=== PATIENT | female | born 1970 | race Caucasian/White ===

== ENCOUNTER 2016-11-23 14:08 | Observation (INO) | payer BC, OTHER ==
[2016-11-23] MEDS ORDERED: NS 1,000 ML IV ONE (14:45)
[2016-11-23] MEDS ORDERED: HYDROmorphONE/DILAUDID 1 MG/ML SYR IVP ONE ×2 (14:45→16:07)
[2016-11-23] MEDS ORDERED: ONDANSETRON 4 MG/2 ML VIAL IVP ONE ×2 (14:45→17:32)
--- NOTE | 2016-11-23 14:50 | EDPHY ---
H & P Stated Complaint: Mid abd pain;n/v since this morning Time Seen by Provider: 11/23/16 14:39 HPI/ROS: CHIEF COMPLAINT: Abdominal pain HISTORY OF PRESENT ILLNESS: Patient is a 46-year-old female who comes to the emergency department complaining of right lower quadrant abdominal pain. Her symptoms began last night but have gradually increased throughout the evening and this morning. She has vomited the 3 times. No diarrhea. She has not had any fevers. She denies risk of . She denies vaginal bleeding or discharge. She does not have any surgical history. REVIEW OF SYSTEMS: Constitutional: denies: chills, fever, recent illness, recent injury EENTM: denies: blurred vision, double vision, nose congestion Respiratory: denies: cough, shortness of breath Cardiac: denies: chest pain, irregular heart rate, lightheadedness, palpitations Gastrointestinal/Abdominal: See HPI Genitourinary: denies: dysuria, frequency, hematuria, pain Musculoskeletal: denies: joint pain, muscle pain Skin: denies: lesions, rash, jaundice, bruising Neurological: denies: headache, numbness, paresthesia, tingling, dizziness, weakness Hematologic/Lymphatic: denies: blood clots, easy bleeding, easy bruising Immunologic/allergic: denies: HIV/AIDS, transplant EXAM: GENERAL: Well-appearing, well-nourished and in no acute distress. HEAD: Atraumatic, normocephalic. EYES: Pupils equal round and reactive to light, extraocular movements intact, sclera anicteric, conjunctiva are normal. ENT: TMs normal, nares patent, oropharynx clear without exudates. Moist mucous membranes. NECK: Normal range of motion, supple without lymphadenopathy or JVD. LUNGS: Breath sounds clear to auscultation bilaterally and equal. No wheezes rales or rhonchi. HEART: Regular rate and rhythm without murmurs, rubs or gallops. ABDOMEN: Soft, nontender, normoactive bowel sounds. No guarding, no rebound. No masses appreciated. BACK: No CVA tenderness, no spinal tenderness, step-offs or deformities EXTREMITIES: Normal range of motion, no pitting or edema. No clubbing or cyanosis. NEUROLOGICAL: Cranial nerves II through XII grossly intact. Normal speech, normal gait. 5/5 strength, normal movement in all extremities, normal sensation PSYCH: Normal mood, normal affect. SKIN: Warm, dry, normal turgor, no visible rashes or lesions. Source: Patient Exam Limitations: No limitations - Personal History LMP (Females 10-55): Unknown Current Tetanus Diphtheria and Acellular Pertussis (TDAP): Yes - Medical/Surgical History Hx Asthma: No Hx Chronic Respiratory Disease: No Hx Diabetes: No Hx Cardiac Disease: No Hx Renal Disease: No Hx Cirrhosis: No Hx Alcoholism: No Other PMH: uterine ablation - Family History Significant Family History: No pertinent family hx - Social History Smoking Status: Former smoker Alcohol Use: Sober Drug Use: None Constitutional: Initial Vital Signs Temperature (C) 36.5 C 11/23/16 14:09 Heart Rate 71 11/23/16 14:09 Respiratory Rate 16 11/23/16 14:09 Blood Pressure 119/74 11/23/16 14:09 O2 Sat (%) 99 11/23/16 14:09 O2 Delivery Mode Room Air Allergies/Adverse Reactions: clindamycin Allergy (Severe, Verified 11/23/16 18:53) cefazolin [From Ancef] Allergy (Verified 11/23/16 14:14) cefuroxime [From Ceftin] Allergy (Verified 11/23/16 14:14) Home Medications: Medication Instructions Recorded Hydrocodone/APAP 5/325 [Endeavor 1 - 2 tab PO Q4HRS PRN #0 tab 11/23/16 5/325 (*)] Iron/Vit C/Docusate [Chana-Sequels 1 each PO DAILY 11/23/16 65 mg (*)] [place]-3 Fatty Acids [Fish Oil 1000 1,000 mg PO DAILY 11/23/16 mg (*)] Medical Decision Making - Diagnostics Imaging Results: Imaging Impressions Abdomen Ultrasound 11/23/16 14:46 Impression: Appendix not identified. Trace free fluid. Findings discussed with Emergency Department physician, JIMMY PHAM at 11/23 17:29. Abdomen CT 11/23/16 17:28 Impression: 1. Acute retrocecal appendicitis with free fluid suspicious for rupture, with no visible abscess. 2. Mild bladder wall thickening, which could be related to inflammation/ infection or underdistention. 3. Additional findings as above. Findings discussed with Dr. Jimmy Pham on November 23, 2016 at 1813 hours. Imaging: Discussed imaging studies w/ bingo caller Radiologist ED Course/Re-evaluation: 5:30 p.m. we discussed the patient's ultrasound and lab results. I am concerned that she has appendicitis. We have ordered a CT scan. She is asking for more Zofran. 6:20 p.m. I discussed the case with Dr. Chance Gillespie who will admit for surgery. He requests antibiotics and Toradol. Differential Diagnosis: Partial list of the Differential diagnosis considered include but were not limited to; appendicitis, ovarian cyst and although unlikely based on the history and physical exam, I also considered fibroid, urinary tract infection, kidney stone. - Data Points Laboratory Results: Laboratory Results 11/23/16 14:50 11/23/16 14:50 11/23/16 11/23/16 11/23/16 16:52 14:50 14:50 WBC RBC Hgb Hct MCV MCH MCHC RDW Plt Count MPV Neut % (Auto) Lymph % (Auto) [place] % (Auto) Eos % (Auto) Baso % (Auto) Nucleat RBC Rel Count Absolute Neuts (auto) Absolute Lymphs (auto) Absolute Monos (auto) Absolute Eos (auto) Absolute Basos (auto) Absolute Nucleated RBC Immature Gran % Immature Gran # Sodium 139 mEq/L mEq/L (134-144) Potassium 3.8 mEq/L mEq/L (3.5-5.2) Chloride 103 mEq/L mEq/L (97-110) Carbon Dioxide 25 mEq/l mEq/l (22-31) Anion Gap 11 mEq/L mEq/L (8-16) BUN 21 mg/dL mg/dL (7-23) Creatinine 0.7 mg/dL mg/dL (0.6-1.0) Estimated GFR > 60 Glucose 83 mg/dL mg/dL (70-100) Calcium 9.4 mg/dL mg/dL (8.5-10.4) Total Bilirubin 1.2 mg/dL mg/dL (0.1-1.4) Conjugated Bilirubin 0.3 mg/dL mg/dL (0.0-0.5) Unconjugated Bilirubin 0.9 mg/dL mg/dL (0.0-1.1) AST 22 IU/L IU/L (14-46) ALT 24 IU/L IU/L (9-52) Alkaline Phosphatase 56 IU/L IU/L (38-126) Total Protein 7.7 g/dL g/dL (6.3-8.2) Albumin 4.7 g/dL g/dL (3.5-5.0) Lipase 78.0 IU/L IU/L (23-300) Beta HCG, Qual NEGATIVE Urine Color YELLOW Urine Appearance CLEAR Urine pH 5.0 (5.0-7.5) Ur Specific [place] 1.013 (1.002-1.030) Urine Protein NEGATIVE (NEGATIVE) Urine Ketones 2+ H (NEGATIVE) Urine Blood NEGATIVE (NEGATIVE) Urine Nitrate NEGATIVE (NEGATIVE) Urine Bilirubin NEGATIVE (NEGATIVE) Urine Urobilinogen NEGATIVE EU EU (0.2-1.0) Ur Leukocyte Esterase NEGATIVE (NEGATIVE) Urine RBC NONE SEEN /hpf /hpf (0-3) Urine WBC 1-3 /hpf /hpf (0-3) Ur Epithelial Cells NONE SEEN /lpf /lpf (NONE-1+) Urine Bacteria NONE SEEN /hpf /hpf (NONE SEEN) Urine Mucus TRACE /lpf /lpf (NONE-1+) Urine Glucose NEGATIVE (NEGATIVE) 11/23/16 14:50 WBC 17.26 10^3/uL H 10^3/uL (3.80-9.50) RBC 4.83 10^6/uL 10^6/uL (4.18-5.33) Hgb 14.8 g/dL g/dL (12.6-16.3) Hct 42.8 % % (38.0-47.0) MCV 88.6 fL fL (81.5-99.8) MCH 30.6 pg pg (27.9-34.1) MCHC 34.6 g/dL g/dL (32.4-36.7) RDW 12.1 % % (11.5-15.2) Plt Count 223 10^3/uL 10^3/uL (150-400) MPV 10.2 fL fL (8.7-11.7) Neut % (Auto) 86.0 % H % (39.3-74.2) Lymph % (Auto) 6.6 % L % (15.0-45.0) [place] % (Auto) 6.1 % % (4.5-13.0) Eos % (Auto) 0.5 % L % (0.6-7.6) Baso % (Auto) 0.3 % % (0.3-1.7) Nucleat RBC Rel Count 0.0 % % (0.0-0.2) Absolute Neuts (auto) 14.85 10^3/uL H 10^3/uL (1.70-6.50) Absolute Lymphs (auto) 1.14 10^3/uL 10^3/uL (1.00-3.00) Absolute Monos (auto) 1.06 10^3/uL H 10^3/uL (0.30-0.80) Absolute Eos (auto) 0.08 10^3/uL 10^3/uL (0.03-0.40) Absolute Basos (auto) 0.05 10^3/uL 10^3/uL (0.02-0.10) Absolute Nucleated RBC 0.00 10^3/uL 10^3/uL (0-0.01) Immature Gran % 0.5 % % (0.0-1.1) Immature Gran # 0.08 10^3/uL 10^3/uL (0.00-0.10) Sodium Potassium Chloride Carbon Dioxide Anion Gap BUN Creatinine Estimated GFR Glucose Calcium Total Bilirubin Conjugated Bilirubin Unconjugated Bilirubin AST ALT Alkaline Phosphatase Total Protein Albumin Lipase Beta HCG, Qual Urine Color Urine Appearance Urine pH Ur Specific [place] Urine Protein Urine Ketones Urine Blood Urine Nitrate Urine Bilirubin Urine Urobilinogen Ur Leukocyte Esterase Urine RBC Urine WBC Ur Epithelial Cells Urine Bacteria Urine Mucus Urine Glucose Medications Given: Discontinued Medications Hydromorphone HCl (Dilaudid) 0.5 mg IVP EDNOW ONE Stop: 11/23/16 14:46 Last Admin: 11/23/16 15:02 Dose: 0.5 mg Hydromorphone HCl (Dilaudid) 1 mg IVP EDNOW ONE Stop: 11/23/16 16:08 Last Admin: 11/23/16 16:13 Dose: 1 mg Sodium Chloride (Ns) 1,000 mls @ 0 mls/hr IV ONCE ONE PRN Reason: Wide Open Stop: 11/23/16 14:46 Last Admin: 11/23/16 15:01 Dose: 1,000 mls Ketorolac Tromethamine (Toradol) 30 mg IVP EDNOW ONE Stop: 11/23/16 18:29 Last Admin: 11/23/16 18:35 Dose: 30 mg Ondansetron HCl (Zofran) 4 mg IVP EDNOW ONE Stop: 11/23/16 14:46 Last Admin: 11/23/16 15:02 Dose: 4 mg Ondansetron HCl (Zofran) 4 mg IVP EDNOW ONE Stop: 11/23/16 17:33 Last Admin: 11/23/16 17:37 Dose: 4 mg Departure - Departure Disposition: [facility] Inpatient Acute Clinical Impression: Acute appendicitis Qualifiers: Acute appendicitis type: with localized peritonitis Qualified Code(s): K35.3 - Acute appendicitis with localized peritonitis Condition: Good
[2016-11-23 15:03] LABS: % IMMATURE GRANULYOCYTES 0.5 % (0.0-1.1); ABSOLUTE IMMATURE GRANULOCYTES 0.08 10^3/uL (0.00-0.10); ADD DIFF? NO; ADD MORPH? NO; ADD SCAN? NO; ATYPICAL LYMPHOCYTE FLAG 0 (0-99); FRAGMENT RBC FLAG 0 (0-99); HEMATOCRIT 42.8 % (38.0-47.0); HEMOGLOBIN 14.8 g/dL (12.6-16.3); LEFT SHIFT FLG 0 (0-99); LIPEMIA HEMOLYSIS FLAG 90 (0-99); MEAN CELL HEMOGLOBIN 30.6 pg (27.9-34.1); MEAN CELL HEMOGLOBIN CONCENTR. 34.6 g/dL (32.4-36.7); MEAN CELL VOLUME 88.6 fL (81.5-99.8); MEAN PLATELET VOLUME 10.2 fL (8.7-11.7); PLATELET CLUMPS FLAG 0 (0-99); PLATELET COUNT 223 10^3/uL (150-400); RED BLOOD CELL COUNT 4.83 10^6/uL (4.18-5.33); RED CELL DISTRIBUTION WIDTH 12.1 % (11.5-15.2)
[2016-11-23 15:23] LABS: ALANINE AMINOTRANSFERASE 24 IU/L (9-52); ALBUMIN 4.7 g/dL (3.5-5.0); ALKALINE PHOSPHATASE 56 IU/L (38-126); ANION GAP 11 mEq/L (8-16); ASPARTATE AMINOTRANSFERASE 22 IU/L (14-46); BILIRUBIN,TOTAL 1.2 mg/dL (0.1-1.4); BILIRUBIN-CONJUGATED 0.3 mg/dL (0.0-0.5); BILIRUBIN-UNCONJUGATED 0.9 mg/dL (0.0-1.1); CALCIUM 9.4 mg/dL (8.5-10.4); CARBON DIOXIDE 25 mEq/l (22-31); CHLORIDE 103 mEq/L (97-110); CREATININE 0.7 mg/dL (0.6-1.0); GLOMERULAR FILTRATION RATE > 60; GLUCOSE 83 mg/dL (70-100); POTASSIUM 3.8 mEq/L (3.5-5.2); SODIUM 139 mEq/L (134-144); TOTAL PROTEIN 7.7 g/dL (6.3-8.2)
[2016-11-23 17:05] LABS: COLOR YELLOW; LEUKOCYTE ESTERASE,URINE NEGATIVE (NEGATIVE); NITRITE,URINE NEGATIVE (NEGATIVE)
[2016-11-23 17:07] LABS: MUCUS TRACE /lpf (NONE-1+)
[2016-11-23 17:08] LABS: BACTERIA NONE SEEN /hpf (NONE SEEN); RBC,URINE NONE SEEN /hpf (0-3)
[2016-11-23] MEDS ORDERED: IOPAMIDOL (ISOVUE-300) 100 ML BTL IV ONE (17:32)
[2016-11-23] MEDS ORDERED: ONDANSETRON 4 MG/2 ML VIAL ONE ×2 (17:33→19:26)
[2016-11-23] MEDS ORDERED: ERTAPENEM 1 GM in NS 100 ML IV ONE (18:27)
[2016-11-23] MEDS ORDERED: KETOROLAC 30 MG/1 ML SDV IVP ONE (18:28)
[2016-11-23] MEDS ORDERED: BUPIVACAINE/EPI 0.25% 30 ML SDV ONE (18:47)
[2016-11-23] MEDS ORDERED: BUPIVACAINE/EPI 0.5% 30 ML SDV ONE (18:49)
[2016-11-23] MEDS ORDERED: CIPROFLOXACIN 400 MG/DEXTROSE 200 ML IV ONE (19:00)
[2016-11-23] MEDS ORDERED: MIDAZOLAM 2 MG/2 ML VIAL ONE (19:16)
[2016-11-23] MEDS ORDERED: PROPOFOL 200 MG/20 ML VIAL ONE (19:20)
[2016-11-23] MEDS ORDERED: LIDOCAINE 2% 5 ML SDV ONE (19:20)
[2016-11-23] MEDS ORDERED: ROCURONIUM 50 MG/5 ML VIAL ONE (19:21)
[2016-11-23] MEDS ORDERED: fentaNYL 100 MCG/2 ML INJ ONE (19:22)
[2016-11-23] MEDS ORDERED: SCOPOLAMINE HYDROBROMIDE 1.5 MG PATCH TD ONE (19:22)
[2016-11-23] MEDS ORDERED: PROPOFOL/EMULSION 500 MG/50 ML BOTTLE IV ONE (19:23)
[2016-11-23] MEDS ORDERED: METOCLOPRAMIDE 10 MG/2 ML VIAL ONE (19:26)
[2016-11-23] MEDS ORDERED: DEXAMETHASONE 4 MG/ML VIAL ONE ×2 (19:26)
[2016-11-23] MEDS ORDERED: SUGAMMADEX SODIUM 200 MG/2 ML VIAL IVP ONE (19:59)
[2016-11-23] MEDS ORDERED: HYDROmorphONE/DILAUDID 1 MG/ML SYR IVP PRN (20:17)
[2016-11-23] MEDS ORDERED: HYDROCODONE/APAP 5/325 TAB PO PRN (20:17)
[2016-11-23] MEDS ORDERED: ZOLPIDEM TARTRATE 5 MG TAB PO PRN (20:17)
[2016-11-23] MEDS ORDERED: ONDANSETRON 4 MG/2 ML VIAL IVP PRN (20:17)
--- NOTE | 2016-11-23 20:17 | POSTOPPROG ---
Post Op Note Date of Operation: 11/23/16 Surgeon: Chance Gillespie Anesthesiologist: Bassem Anesthesia: GET(General Endotracheal) Pre-op Diagnosis: Acute Appendicitis Post-op Diagnosis: Same Procedure: Lap Appy Findings: Early retrocecal appx Inf/Abcess present in the surg proc area at time of surgery?: Yes Depth: Organ Space EBL: Minimal Complications: no immediate Specimen(s): appendix
--- NOTE | 2016-11-23 20:22 | GHP ---
[f rep st] PREOP HISTORY AND PHYSICAL DATE OF ADMISSION: 11/23/2016 REASON FOR EVALUATION: Appendicitis. HISTORY OF PRESENT ILLNESS: 46-year-old healthy female with sudden onset lower abdominal pain starting last evening. She has a longstanding history of intermittent, gassy-type feelings, with which she thought this might be consistent. Throughout the course of the evening, her pain worsened in intensity, requiring her to come to the emergency room this afternoon. Associated nausea and vomiting earlier this morning. Bowel movements have been soft without diarrhea. No voiding complaints. The car ride was uncomfortable over bumps. PAST MEDICAL HISTORY: Mitral valve prolapse. PAST SURGICAL HISTORY: Uterine ablation, hemorrhoidectomy, and bilateral breast augmentation. MEDICATIONS: Iron. ALLERGIES: NSAID sensitivity (postoperative bleeding post augmentation and hemorrhoidectomy); ANCEF, hives; CLEOCIN, pseudomembranous colitis. SOCIAL HISTORY: No alcohol, no tobacco. She is . She is a pediatric nurse. FAMILY HISTORY: Noncontributory. REVIEW OF SYSTEMS: Notable for above GI complaints. Prior hematologic workup for von Willebrand factor negative. PHYSICAL EXAMINATION: VITAL SIGNS: Afebrile. Vital Signs normal. GENERAL: The patient is alert, appropriate. Moving comfortably. HEENT: Anicteric. LYMPHATIC: No cervical lymphadenopathy. HEART: Regular. LUNGS: Clear. ABDOMEN: Soft, with minimal left lower quadrant tenderness with guarding. Minimal right lower quadrant tenderness. No abdominal hernias. EXTREMITIES: Unremarkable NEUROLOGIC: Exam unremarkable. LABORATORY DATA: White count 17. Urinalysis negative. test negative. IMAGING: CT of the abdomen and pelvis with a markedly-thickened retrocecal appendix wrapping around her uterus. Images directly reviewed on PACS. IMPRESSION: Early appendicitis. PLAN: Laparoscopic appendectomy. Risks and benefits were explained of bleeding , infection, open conversion, as well as alternative diagnoses. All questions were answered. She desires to proceed. Heightened risk of postoperative bleeding was also noted. Will hold NSAIDs, given her prior history of bleeding sequela. /[id number]/MODL MTDD
[2016-11-23] MEDS ORDERED: LR 1,000 ML IV SCH (20:30)
[2016-11-23] MEDS: ACETAMINOPHEN 325 MG TAB PO PRN (22:53)
[2016-11-24] MEDS: ACETAMINOPHEN 325 MG TAB PO PRN (05:36)
--- NOTE | 2016-11-24 06:57 | SOAPPROG ---
SOAP Progress Note Assessment/Plan: Assessment:no overnight issues. min pain. no nausea or vomiting. avss. comfortable. abd soft. incis clean. doing well. home today. Plan: 11/24/16 06:56 Objective: Vital Signs Temp Pulse Resp BP Pulse Ox 37.0 C 77 16 84/45 L 96 11/24/16 04:00 11/24/16 04:00 11/24/16 04:00 11/24/16 04:00 11/24/16 04:00 11/23/16 11/24/16 11/25/16 05:59 05:59 05:59 Intake Total 1850 Output Total 5 Balance 1845 ICD10 Worksheet Patient Problems: Problems Problem Status Onset Acute appendicitis Acute
[2016-11-24 08:00] VITALS: BP 85/46; PULSE 48; RESP 18; TEMP 98.8; O2SAT 94
--- NOTE | 2016-11-24 14:00 | GOP ---
[f rep st] OPERATIVE REPORT DATE OF OPERATION: 11/23/2016 SURGEON: Chance Gillespie MD ANESTHESIA: General. ANESTHESIOLOGIST: Dr. Luevano. PREOPERATIVE DIAGNOSIS: Acute appendicitis. POSTOPERATIVE DIAGNOSIS: Acute appendicitis. PROCEDURE PERFORMED: Laparoscopic appendectomy. FINDINGS: As below. INDICATIONS: 46-year-old female with acute appendicitis. She is undergoing a laparoscopic appendectomy at this time. Risks and benefits were explained are bleeding, infection, open conversion, as well as alternative diagnoses. All questions were answered. She desires to proceed. DESCRIPTION OF PROCEDURE: General anesthesia was induced. The abdomen was pre- injected with 0.5% Marcaine with epinephrine. A curvilinear infraumbilical incision was created. The midline fascia was opened vertically. A 10 mm trocar was placed under direct visualization. 2 additional 5 mm ports were inserted. The appendix was acutely thickened with minimal suppuration. This was sitting in retrocecal location. The mesoappendix was divided with the Harmonic scalpel. The base was transected flush with the cecum with an endoscopic MAMTA stapler. The specimen was brought through the umbilical port site using an EndoCatch pouch. Satisfactory hemostasis was assured. Trocars removed under direct visualization. The infraumbilical midline fascia was closed with a running Vicryl suture. The wounds were closed with Monocryl followed by Dermabond. The patient was taken to Recovery uneventfully. /[id number]/MODL MTDD
== END 2016-11-24 08:30 | disposition home or self-care (01) ==
LOC: F3E 20:51
PROVIDERS: ADMIT Surgery; ATTEND Surgery
PROC: 0DTJ4ZZ Resection of Appendix, Percutaneous Endoscopic Approach (ICD-10-PCS; principal; 2016-11-23 19:00)
DX: K35.80 Unspecified acute appendicitis (principal); I34.1 Nonrheumatic mitral (valve) prolapse
CPT/HCPCS: 44970; 74177; 76705; 76856; C1727; G0378; 96374; J0744; J1100; J1170; J1335; J1885; J2250; J2405; J2704; J2765; J3010; Q9967

== ENCOUNTER → 2017-09-13 | Outpatient (CLI) | payer BC | LOC: BMCIMAGING 16:55 | PROVIDERS: ATTEND Internal Medicine | DX: J18.9 Pneumonia, unspecified organism (principal) ==

== ENCOUNTER → 2018-09-12 | Outpatient (CLI) | payer BC | LOC: BMCIMAGING 13:02 | DX: Z12.31 Encounter for screening mammogram for malignant neoplasm of breast (principal) ==